=== PATIENT | female | born 1945 | race Two or more races ===

== ENCOUNTER 2024-07-20 09:24 | Outpatient (CLI) | payer OTHER | END 2024-07-20 09:26 | disposition home or self-care (01) | LOC: NUCLEAR 09:24 | PROVIDERS: ATTEND Specialist | DX: I73.9 Peripheral vascular disease, unspecified (principal) ==

== ENCOUNTER 2024-07-21 10:35 | Outpatient (CLI) | payer OTHER | END 2024-07-21 10:36 | disposition home or self-care (01) | LOC: NUCLEAR 10:35 | PROVIDERS: ATTEND Specialist | DX: I87.2 Venous insufficiency (chronic) (peripheral) (principal) ==

== ENCOUNTER 2025-04-18 14:23 | Inpatient (IN) | payer OTHER ==
[~2025-04-18] VITALS: Ht 152.4 cm; Wt 63.0 kg
[2025-04-18] MEDS ORDERED: COZAAR100 MG PO (14:49)
[2025-04-18] MEDS ORDERED: LIPITOR40 M1 PO (14:49)
[2025-04-18] MEDS ORDERED: HYDRODIURIL12.5 MG PO (14:50)
[2025-04-18] MEDS ORDERED: SYNTHROID75 MCG PO (14:50)
--- NOTE | 2025-04-18 14:51 | NUR ---
SE RECIBE PTE EN LASHELL DE EMERGENCIA EN [facility]IA DEL [facility] PTE ALERTA Y ORIENTADA X3 REFIERE QUE VIENE POR ORDEN DEL DR. LOVING QUINTERO POR ULCERA EN LA PIERNA DEREGUMARO.SE TAYLA S/V Y SE UBICA PAR [place] MEDICO.
--- NOTE | 2025-04-18 15:32 | NUR ---
RN. MARES ORIENTA PTE SOBRE TRATAMIENTO MEDICO Y LO EJECUTA EN GONSALEZ TOTALIDAD
[2025-04-18 15:55] LABS: URINE APPEARANCE Clear; URINE BILIRRUBIN Negative (NEGATIVE); URINE BLOOD Negative; URINE COLOR Yellow; URINE GLUCOSE Negative (NEGATIVE); URINE KETONE Negative (NEGATIVE); URINE LEUKOCYTE Negative; URINE NITRATE Negative; URINE PROTEIN Negative (NEGATIVE); URINE UROBILINOGEN 0.2 E.U./dl
[2025-04-18 15:59] LABS: URINE BACTERIA 7.1 uL (0.0-1933); URINE EPITHELIAL CELLS 2.5 uL (0.0-38.8); URINE RBC 2.4 uL (0.0-20.8); URINE WBC 1.9 uL (0.0-23.2)
[2025-04-18 16:04] LABS: URINE CAST 0.29 uL (0.0-1.40)
[2025-04-18 16:13] LABS: BASO % 0.3 % (0.1-1.2); EOS # 0.04 (0.04-0.54); EOS % 0.4 % (0.7-7.0); LYMPH # 1.21 (1.18-3.74); LYMPH % 11.9 % (19.3-53.1); MEAN PLATELET VOLUME 9.00 fl (9.4-12.4); MONO # 0.86 (0.24-0.82); MONO % 8.4 % (4.7-12.5); NEUT # 8.05 (1.56-6.13); NEUT % 78.8 % (34.0-71.1); RED CELL DISTRIBUTION WIDTH 15.6 % (11.6-14.4)
[2025-04-18 16:27] LABS: COVID-19 AG NEGATIVE (NEGATIVE)
[2025-04-18 16:41] LABS: ALT/SGPT 13.0 U/L (12-78); AST/SGOT 17.0 U/L (15-37); BILIRUBIN TOTAL 0.38 mg/dL (0.3-1.2); BUN CREA RATIO 27.0 (7.0-25.0); CREATININE SERUM 0.86 mg/dL (0.55-1.02); GFR 63.65; GLOBULINA 5.1 G/DL (2.4-3.5); GLUCOSE FASTING 98.0 mg/dL (65-100); OSMOLALITY SERUM 285.0 MOSM/KG (275-295)
[2025-04-18] MEDS ORDERED: VANCOMYCIN HCL 1,000 MG VIAL IV SCH (17:49)
[2025-04-18] MEDS ORDERED: ACETAMINOPHEN 500 MG GEL..CAP PO PRN (18:00)
[2025-04-18] MEDS ORDERED: 0.9 % SODIUM CHLORIDE 1,000 ML IV SCH (18:00)
[2025-04-18] MEDS ORDERED: VANCOMYCIN HCL 1,000 MG VIAL ONE (19:05)
[2025-04-18] MEDS ORDERED: CEFEPIME HCL 2,000 MG VIAL ONE (19:05)
[2025-04-18 20:14] LABS: INR 1.0
[2025-04-18 20:58] LABS: COVID-19 AG NEGATIVE (NEGATIVE)
[2025-04-18] MEDS ORDERED: CEFEPIME HCL 2,000 MG in 0.9 % SODIUM CHLORIDE 100 ML IV SCH (21:00)
[2025-04-18 22:34] VITALS: BP 160/73; O2SAT 100
[2025-04-19 00:56] VITALS: BP 143/80; O2SAT 100
[2025-04-19] MEDS ORDERED: LEVOTHYROXINE SODIUM 75 MCG TABLET PO SCH (06:00)
[2025-04-19 07:59] VITALS: BP 151/74
[2025-04-19] MEDS ORDERED: FAMOTIDINE/PF 20 MG/2 ML VIAL ONE (08:22)
[2025-04-19] MEDS ORDERED: ENOXAPARIN SODIUM 40 MG/0.4 ML SYRINGE SUBCUTANEO SCH (09:00)
[2025-04-19] MEDS ORDERED: LOSARTAN POTASSIUM 100 MG TABLET PO SCH (09:00)
[2025-04-19] MEDS ORDERED: HYDROCHLOROTHIAZIDE 12.5 MG CAPSULE PO SCH (09:00)
[2025-04-19] MEDS ORDERED: ATORVASTATIN CALCIUM 40 MG TABLET PO SCH (09:00)
[2025-04-19] MEDS ORDERED: FAMOTIDINE/PF 20 MG in 0.9 % SODIUM CHLORIDE 8 ML IV PUSH SCH (09:00)
[2025-04-19 16:57] VITALS: BP 137/72
[2025-04-19] MEDS ORDERED: AMINO ACIDS/PROTEIN HYDROLYS 30 ML BLIST.PACK PO SCH (17:00)
[2025-04-19] MEDS ORDERED: CIPROFLOXACIN IN 5 % DEXTROSE 400 MG/200 ML PIGGYBAG IV SCH (17:00)
[2025-04-19] MEDS ORDERED: AMPICILLIN SODIUM/SULBACTAM NA 3,000 MG VIAL IV SCH (18:00)
[2025-04-20 02:09] VITALS: BP 161/72; O2SAT 96
[2025-04-20 08:36] VITALS: BP 151/62
[2025-04-20 17:38] VITALS: BP 132/78; O2SAT 99
[2025-04-20 17:41] VITALS: BP 146/69; O2SAT 99
[2025-04-20 21:42] LABS: BASO % 0.3 % (0.1-1.2); EOS # 0.13 (0.04-0.54); EOS % 1.4 % (0.7-7.0); LYMPH # 1.32 (1.18-3.74); LYMPH % 14.7 % (19.3-53.1); MEAN PLATELET VOLUME 9.00 fl (9.4-12.4); MONO # 1.16 (0.24-0.82); NEUT # 6.31 (1.56-6.13); NEUT % 70.5 % (34.0-71.1); RED CELL DISTRIBUTION WIDTH 15.4 % (11.6-14.4)
[2025-04-20 21:43] LABS: MONO % 12.9 % (4.7-12.5)
[2025-04-20 22:12] LABS: ALT/SGPT 10.0 U/L (12-78); AST/SGOT 14.0 U/L (15-37); BILIRUBIN TOTAL 0.3 mg/dL (0.3-1.2); BUN CREA RATIO 31.0 (7.0-25.0); CREATININE SERUM 1.03 mg/dL (0.55-1.02); GFR 51.69; GLOBULINA 4.0 G/DL (2.4-3.5); GLUCOSE FASTING 106.0 mg/dL (65-100); OSMOLALITY SERUM 289.0 MOSM/KG (275-295)
[2025-04-21 04:35] VITALS: BP 125/70; O2SAT 97
[2025-04-21 10:01] VITALS: BP 148/67; O2SAT 97
[2025-04-21 18:23] VITALS: BP 122/85
[2025-04-21 18:25] VITALS: BP 122/85
[2025-04-21] MEDS ORDERED: MAGNESIUM SULFATE 1,000 MG in 0.9 % SODIUM CHLORIDE 50 ML IV ONE (22:00)
[2025-04-22 02:13] VITALS: BP 121/69; O2SAT 99
[2025-04-22 07:54] LABS: BUN CREA RATIO 38.0 (7.0-25.0); CREATININE SERUM 0.87 mg/dL (0.55-1.02); GFR 62.81; GLUCOSE FASTING 75.0 mg/dL (65-100); OSMOLALITY SERUM 287.0 MOSM/KG (275-295)
[2025-04-22 09:41] VITALS: BP 135/80
[2025-04-22 18:18] VITALS: BP 155/66; O2SAT 97
[2025-04-23 02:02] VITALS: BP 150/72; O2SAT 96
[2025-04-23 08:04] VITALS: BP 139/70
[2025-04-23 18:45] VITALS: BP 148/63; O2SAT 100
[2025-04-24 02:05] VITALS: BP 132/68; O2SAT 96
[2025-04-24 06:16] LABS: BASO % 0.3 % (0.1-1.2); EOS # 0.09 (0.04-0.54); EOS % 0.8 % (0.7-7.0); LYMPH # 1.54 (1.18-3.74); LYMPH % 13.9 % (19.3-53.1); MEAN PLATELET VOLUME 9.50 fl (9.4-12.4); MONO # 1.74 (0.24-0.82); NEUT # 7.66 (1.56-6.13); NEUT % 69.0 % (34.0-71.1); RED CELL DISTRIBUTION WIDTH 15.0 % (11.6-14.4)
[2025-04-24 06:35] LABS: MONO % 15.7 % (4.7-12.5)
[2025-04-24 06:58] LABS: ALT/SGPT 12.0 U/L (12-78); AST/SGOT 16.0 U/L (15-37); BILIRUBIN TOTAL 0.39 mg/dL (0.3-1.2); BUN CREA RATIO 36.0 (7.0-25.0); CREATININE SERUM 0.86 mg/dL (0.55-1.02); GFR 63.65; GLOBULINA 4.0 G/DL (2.4-3.5); GLUCOSE FASTING 75.0 mg/dL (65-100); OSMOLALITY SERUM 285.0 MOSM/KG (275-295)
[2025-04-24 08:00] VITALS: BP 157/83
[2025-04-24 18:49] VITALS: BP 146/72
[2025-04-25 02:10] VITALS: BP 133/65; O2SAT 96
[2025-04-25 08:25] VITALS: BP 145/70; O2SAT 96
[2025-04-25 14:44] LABS: FE 39.0 ug/dl (50-170)
[2025-04-25 16:12] VITALS: BP 144/73; O2SAT 98
[2025-04-26 00:03] LABS: BASO % 0.4 % (0.1-1.2); EOS # 0.12 (0.04-0.54); EOS % 1.1 % (0.7-7.0); LYMPH # 1.37 (1.18-3.74); LYMPH % 12.3 % (19.3-53.1); MEAN PLATELET VOLUME 9.60 fl (9.4-12.4); MONO # 1.63 (0.24-0.82); NEUT # 7.98 (1.56-6.13); NEUT % 71.2 % (34.0-71.1); RED CELL DISTRIBUTION WIDTH 16.5 % (11.6-14.4)
[2025-04-26 00:49] LABS: MONO % 14.6 % (4.7-12.5)
[2025-04-26 03:06] VITALS: BP 135/65; O2SAT 97
[2025-04-26 09:33] VITALS: BP 158/72
[2025-04-26 10:58] LABS: FOLIC ACID > 20.00 ng/ml (4.78-20)
[2025-04-26] MEDS ORDERED: Cyanocobalamin/Mecobalamin 1 TAB.SL SL NR (14:30)
[2025-04-26] MEDS ORDERED: CYANOCOBALAMIN (VITAMIN B-12) 1,000 MCG/ML VIAL IM NR (14:30)
[2025-04-26] MEDS ORDERED: B COMPLEX1 EAC1 PO (18:08)
[2025-04-26] MEDS ORDERED: B-122500 MCG SL (18:10)
[2025-04-26] MEDS ORDERED: AVIDOXY100 MG PO (18:10)
[2025-04-27] MEDS ORDERED: CYANOCOBALAMIN (VITAMIN B-12) 1,000 MCG/ML VIAL IM SCH (09:00)
[2025-04-27] MEDS ORDERED: Cyanocobalamin/Mecobalamin 1 TAB.SL SL SCH (09:00)
[2025-04-27 09:09] LABS: CA 15-3 14.7 U/mL (0.0-25.0)
[2025-04-27 11:12] LABS: CA 125 23.5 U/mL (0.0-38.1)
[2025-04-30 06:40] LABS: g6pd quant 312 (127-427)
== END 2025-04-26 18:34 | disposition home or self-care (01) | DRG 593 ==
LOC: ER 14:23 → MEDI 18:40 → MEDJ 18:40
PROVIDERS: Emergency Medicine; General Practice; Internal Medicine; Internal Medicine Hematology & Oncology; ADMIT Internal Medicine; ATTEND Internal Medicine
PROC: 8E0ZXY6 Isolation (ICD-10-PCS; principal; 2025-04-18)
PROC: 05HB33Z Insertion of Infusion Device into Right Basilic Vein, Percutaneous Approach (ICD-10-PCS; 2025-04-21)
PROC: B54MZZZ Ultrasonography of Right Upper Extremity Veins (ICD-10-PCS; 2025-04-24)
PROC: 30233N1 Transfusion of Nonautologous Red Blood Cells into Peripheral Vein, Percutaneous Approach (ICD-10-PCS; 2025-04-25)
DX: L97.919 Non-pressure chronic ulcer of unspecified part of right lower leg with unspecified severity (principal); Z16.24 Resistance to multiple antibiotics; Z78.9 Other specified health status; E78.2 Mixed hyperlipidemia; D51.3 Other dietary vitamin B12 deficiency anemia; D53.0 Protein deficiency anemia; D63.8 Anemia in other chronic diseases classified elsewhere

== ENCOUNTER 2025-05-04 08:31 | Outpatient (CLI) | payer OTHER ==
[~2025-05-04 08:31] MED LIST: AVIDOXY100 MG PO; B COMPLEX1 EAC1 PO; B-122500 MCG SL; COZAAR100 MG PO; HYDRODIURIL12.5 MG PO; LIPITOR40 M1 PO; SYNTHROID75 MCG PO
== END 2025-05-04 08:35 | disposition home or self-care (01) ==
LOC: WOUND MED 08:31 → WOUND CARE 08:31 → WOUND MED 08:35
PROVIDERS: ATTEND Specialist
DX: L97.312 Non-pressure chronic ulcer of right ankle with fat layer exposed (principal)
CPT/HCPCS: 11042; A4927; A6219; A6222; A6223